=== PATIENT | male | born 1965 | race Caucasian/White ===

== ENCOUNTER 2021-04-23 11:41 | Emergency (ER) | payer BC ==
[~2021-04-23] VITALS: Ht 188 cm; Wt 88.2 kg
[2021-04-23 11:49] VITALS: TEMP 98.3
[2021-04-23 12:33] LABS: BASO # 0.1 K/mm3 (0.0-0.2); BASO % 0.7 % (0.0-2.0); EOS # 0.2 K/mm3 (0.0-0.7); EOS % 2.5 % (0-4.0); GRAN # 6.1 K/mm3 (1.4-6.5); GRAN % 70.6 % (42.2-75.2); HEMATOCRIT 39.5 % (42.0-52.0); HEMOGLOBIN 13.2 g/dl (13.5-18.0); LYMPH # 1.4 K/mm3 (1.2-3.4); LYMPH % 16.4 % (20.0-51.0); MEAN CELL VOLUME 94 fl (80.0-100.0); MEAN CORPUSCULAR HEMOGLOBIN 31 pg (27.0-31.0); MEAN CORPUSCULAR HGB CONC 33 g/dl (33.0-37.0); MEAN PLATELET VOLUME 10.1 fl (7.4-10.4); MONO # 0.8 K/mm3 (0.1-0.6); MONO % 9.2 % (1.7-9.3); PLATELET COUNT 241 K/mm3 (130-400); RED BLOOD COUNT 4.21 M/mm3 (4.20-5.60); REDCELL DISTRIBUTION WIDTH-CV 14.7 % (11.5-14.5)
[2021-04-23 12:34] LABS: COLLECTION METHOD CLEAN CATCH
[2021-04-23 12:42] LABS: MUCOUS Present /lpf; PH 5 (5-8); SQUAMOUS EPITHELIAL None Seen /hpf; URINE APPEARANCE Clear; URINE BACTERIA None Seen /hpf; URINE BILIRUBIN Negative (NEGATIVE); URINE BLOOD Negative (NEGATIVE); URINE COLOR Yellow; URINE GLUCOSE Negative (NEGATIVE); URINE KETONE Negative (NEGATIVE); URINE LEUKOCYTE ESTERASE Negative (NEGATIVE); URINE NITRATE Negative (NEGATIVE); URINE PROTEIN(semi-quant) Negative (NEGATIVE); URINE RBC 0-2 /hpf; URINE UROBILINOGEN Negative (NEGATIVE)
[2021-04-23 12:51] LABS: ALBUMIN 3.4 gm/dL (3.5-5.0); BILIRUBIN,TOTAL 0.1 mg/dL (0.2-1.2); C-REACTIVE PROTEIN 0.1 mg/dL (0.00-0.50); CALCIUM 9.2 mg/dL (8.4-10.2); CREATININE, serum 0.95 mg/dL (0.72-1.25); POTASSIUM 4.2 mmol/L (3.5-4.5); TOTAL PROTEIN 6.3 gm/dL (6.2-8.1)
[2021-04-23 14:11] VITALS: BP 136/90; PULSE 64
[2021-05-04] MEDS ORDERED: HYZAAR 12.5 MG-1 TAB PO (06:45)
[2021-05-04] MEDS ORDERED: BUSPAR DIVIDOSE15 MG (06:46)
[2021-05-04] MEDS ORDERED: NORVASC 10MG10 MG PO (06:46)
[2021-05-04] MEDS ORDERED: FLOMAX 0.40.4 MG/CAP PO (06:47)
[2021-05-04] MEDS ORDERED: EFFEXOR-XR150 MG PO (06:47)
[2021-05-04] MEDS ORDERED: FLAGYL500 MG PO (06:47)
[2021-05-04] MEDS ORDERED: NEOMYCIN S500 MG/TAB PO (06:48)
[2021-05-06] MEDS ORDERED: TYLENOL 500MG500 MG PO (09:59)
[2021-05-06] MEDS ORDERED: ROXICODONE 55 MG/TAB PO (09:59)
== END 2021-04-23 14:14 | disposition home or self-care (01) ==
LOC: COL.ER 11:41
PROVIDERS: Family Medicine
DX: C18.9 Malignant neoplasm of colon, unspecified (principal)
CPT/HCPCS: J7120; Q9967

== ENCOUNTER 2022-05-16 07:04 | Day surgery (SDC) | payer BC ==
[~2022-05-16] VITALS: Ht 188 cm; Wt 94.5 kg
[~2022-05-16 07:04] MED LIST: BUSPAR DIVIDOSE15 MG; EFFEXOR-XR150 MG PO; FLAGYL500 MG PO; FLOMAX 0.40.4 MG/CAP PO; HYZAAR 12.5 MG-1 TAB PO; NEOMYCIN S500 MG/TAB PO; NORVASC 10MG10 MG PO; ROXICODONE 55 MG/TAB PO; TYLENOL 500MG500 MG PO
[2022-05-16] MEDS ORDERED: ZOLOFT 100MG100 MG PO (07:41)
[2022-05-16 07:59] VITALS: BP 132/84; PULSE 67; TEMP 97.9
--- NOTE | 2022-05-16 08:55 | NUR ---
PT TO BAY 4 PER CART FROM PROCEDURE ROOM. REPORT RECEIVED. VS OBTAINED. PT DENIES ANY NEEDS AT THIS TIME.
[2022-05-16 09:12] VITALS: BP 110/69; PULSE 53
--- NOTE | 2022-05-16 09:13 | NUR ---
REPORT RECEIVED FROM SHARONA DUMONT. PT A&OX3, SITTING IN CHAIR, TOLERATING PO LIQUIDS WELL. SPOUSE AT BEDSIDE. CALL AGUILAR WITHIN REACH; SAFETY MAINTAINED.
[2022-05-16 09:14] VITALS: BP 118/77; PULSE 54
--- NOTE | 2022-05-16 09:20 | NUR ---
DISCHARGE INSTRUCTIONS GIVEN TO PT AND SPOUSE; QUESTIONS ANSWERED; UNDERSTANDING VERBALIZED. PT DISCHARGED OUT OD DEPT VIA WC WITH SPOUSE DRIVING. SAFETY MAINTAINED.
[2022-05-16 09:21] VITALS: BP 126/72; PULSE 56
--- NOTE | 2022-05-16 09:30 | NUR ---
09-DR CHERRY IN ROOM DISCUSSING FINDINGS OF PROCEDURE. 0915-DISCHARGE EDUCATION COMPLETED WITH PT AND HIS . VERBALIZED UNDERSTANDING OF HOME AND FOLLOW UP CARE. ALL QUESTIONS ANSWERED. DISCHARGE PAPERWORK GIVEN TO PT. 929-PT OFF UNIT PER WHEELCHAIR. PT DISCHARGED TO HOME WITH PER PERSONAL VEHICLE.
== END 2022-05-16 09:30 | disposition home or self-care (01) ==
LOC: SDCO 07:04
DX: Z12.11 Encounter for screening for malignant neoplasm of colon (principal); D12.3 Benign neoplasm of transverse colon; D12.4 Benign neoplasm of descending colon; K64.0 First degree hemorrhoids; F17.210 Nicotine dependence, cigarettes, uncomplicated; Z98.0 Intestinal bypass and anastomosis status; Z85.038 Personal history of other malignant neoplasm of large intestine
CPT/HCPCS: J2704; J3010; J7120